=== PATIENT | male | born 1995 | race Caucasian/White ===

== ENCOUNTER 2020-03-02 22:14 | Emergency (ER) | payer BC ==
[~2020-03-02] VITALS: Ht 165.1 cm; Wt 83.9 kg
[2020-03-02 22:25] VITALS: Ht 165.1 cm; Wt 83.9 kg
[2020-03-03 00:03] VITALS: BP 102/68
== END 2020-03-03 00:03 | disposition home or self-care (01) ==
LOC: ED 22:14
DX: S93.402A Sprain of unspecified ligament of left ankle, initial encounter (principal); X50.1XXA Overexertion from prolonged static or awkward postures, initial encounter; Y93.89 Activity, other specified; Y92.89 Other specified places as the place of occurrence of the external cause; Y99.8 Other external cause status
CPT/HCPCS: Q0092